=== PATIENT | female | born 2000 | race Two or more races ===

== ENCOUNTER 2024-12-13 09:44 | Emergency (ER) | payer MEDICAID, SELFPAY ==
[2024-12-13 09:44] VITALS: BMI 31.1
[2024-12-13 09:54] VITALS: BP 127/88; PULSE 79; RESP 16; TEMP 36.8; O2SAT 100
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
--- NOTE | 2024-12-13 10:05 | XR_ITS ---
Examination: Wrist, right 3 views Technique: Wrist AP, oblique, lateral 3 views Date and time of exam: December 13, 2024 at 1014 hrs. Indications: Injury to the wrist today, wrist pain. Findings: There is irregularity of the hamate Distal radius distal ulna intact Impression: Recommend CT scan wrist follow-up to exclude fracture of the hamate
--- NOTE | 2024-12-13 10:05 | XR_ITS ---
Examination: Hand, right 3 views Technique: Hand AP, oblique, lateral 3 views Date and time of exam: December 13, 2024 1014 hrs. Indications: Injury to the hand today, hand pain Findings: Metacarpals digits appear intact Mild irregularity of the hamate Impression: Recommend CT scan wrist without contrast follow-up to exclude fracture of the hamate
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
[2024-12-13] MEDS: ONDANSETRON ODT 4 MG TABRAP PO (10:24)
[2024-12-13] MEDS: IBUPROFEN TAB 400 MG TABLET 800 MG PO (10:24)
[2024-12-13] MEDS: HYDROcodone/APAP 5/325 TABLET 1 TAB PO (10:25)
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
[2024-12-13] MEDS: HYDROcodone/APAP 5/325 TABLET 2 TAB PO (14:31)
== END 2024-12-13 15:35 | disposition home or self-care (01) ==
PROVIDERS: Emergency Provider Emergency Medicine; PCP Family Medicine
DX: S62.141A Displaced fracture of body of hamate [unciform] bone, right wrist, initial encounter for closed fracture (principal); S62.314A Displaced fracture of base of fourth metacarpal bone, right hand, initial encounter for closed fracture; Y04.0XXA Assault by unarmed brawl or fight, initial encounter
CPT/HCPCS: 29125; 73090; 73100; 73120; 73200; 99284; Q0162; A9270